=== PATIENT | female | born 1950 | race Caucasian/White ===

== ENCOUNTER 2025-06-10 14:28 | Outpatient (OUT) | payer MEDICARE, OTHER, SELFPAY ==
--- NOTE | 2025-06-10 14:31 | MM_ITS ---
Patient Name: ANNA AGUILAR MR#: [id number] : 1950 Exam Date: 06/10/2025 Ordering Doctor: DR ISABELL KELLY CNM RADIOLOGY REPORT PROCEDURE: MM TOMOSYNTHESIS SCREENING BI COMPARISON: MG MAMM SCREEN MARILIN W CAD, 02/05/2024. INDICATIONS: Screening Calculator Name NCI Breast Cancer Risk Assessment Tool 5 Year Breast Cancer Risk Not Reported. Lifetime Breast Cancer Risk Not Reported. Personal Breast Cancer No Personal Ovarian Cancer No Treatments None Family Cancers None LOCATION: [facility] BREAST COMPOSITION: There are scattered areas of fibroglandular density. FINDINGS: DIAGNOSTIC CATEGORY 1--NEGATIVE. RIGHT BREAST: No significant suspicious finding. LEFT BREAST: No significant suspicious finding. RECOMMENDATIONS: ROUTINE MAMMOGRAM AND CLINICAL EVALUATION IN 12 MONTHS. Dictated by: Leonardo Moon DO on 06/10/2025 at 15:25 Approved by: Leonardo Moon DO on 06/10/2025 at 15:26
== END 2025-06-10 14:29 | disposition home or self-care (01) ==
LOC: MAMMO 14:28
PROVIDERS: PCP Family Medicine; Visit Provider Midwife
DX: Z12.31 Encounter for screening mammogram for malignant neoplasm of breast (principal)
CPT/HCPCS: 77063; 77067